=== PATIENT | male | born 1975 | race Caucasian/White ===

== ENCOUNTER 2018-07-12 13:14 | Emergency (ER) | payer OTHER ==
[2018-07-12] MEDS ORDERED: Cyclobenzaprine 10 MG TAB ONE (13:43)
[2018-07-12] MEDS ORDERED: traMADol HCl 50 MG TAB ONE (13:45)
--- NOTE | 2018-07-12 15:35 | RAD ---
3 VIEW THORACIC SPINE SERIES: Date: 07/12/18 INDICATION: Back pain. FINDINGS: There is mild degenerative change of the thoracic spine and a slight degree of right convexity curvat ure. No compression fracture or subluxation. There is a rounded overlying density at the medial left upper abdomen, not further characterized. IMPRESSION: Mild degenerative change of the thoracic spine. No acute compression fracture or subluxation. POS: JASVIR
--- NOTE | 2018-07-12 16:16 | RAD ---
LUMBAR SPINE 2 VIEWS: Date: 07/12/18 HISTORY: Low back pain. FINDINGS: There are five lumbar-type vertebrae. Minimal degenerative spondylolisthesis at the L4-5 level. Pedic les are intact. Vertebral body heights are maintained. Mild osteophytosis throughout the facets. IMPRESSION: Mild degenerative changes. No acute osseous abnormalities are demonstrated. POS: JASVIR
== END 2018-07-12 16:42 | disposition home or self-care (01) ==
LOC: ERS 13:14
DX: M54.5 Low back pain (principal); M54.6 Pain in thoracic spine; I10 Essential (primary) hypertension; F31.9 Bipolar disorder, unspecified; V43.52XA Car driver injured in collision with other type car in traffic accident, initial encounter
CPT/HCPCS: 72072; 72100

== ENCOUNTER 2019-07-08 01:08 | Emergency (ER) | payer BC, SELFPAY ==
[2019-07-08] MEDS ORDERED: Lidocaine 1% PF 5 ML VIAL ONE (02:12)
[2019-07-08] MEDS ORDERED: Bacitracin 1 PK ONE (02:31)
[2019-07-08] MEDS ORDERED: Adacel (T-DAP) 0.5 ML SYRINGE ONE (02:31)
== END 2019-07-08 02:43 | disposition home or self-care (01) ==
LOC: ERS 01:08
DX: S01.412A Laceration without foreign body of left cheek and temporomandibular area, initial encounter (principal); I10 Essential (primary) hypertension; F31.9 Bipolar disorder, unspecified; Z79.899 Other long term (current) drug therapy; Z23 Encounter for immunization; W01.0XXA Fall on same level from slipping, tripping and stumbling without subsequent striking against object, initial encounter
CPT/HCPCS: 12013; 90471; 90715; J2001